=== PATIENT | female | born 1965 | race Caucasian/White ===

== ENCOUNTER 2016-10-01 08:18 | Emergency (ER) | payer MEDICAID, OTHER ==
[~2016-10-01] VITALS: Wt 78.0 kg
[2016-10-01 09:18] LABS: URINE BLOOD (Dip) POC 1+ (NEGATIVE)
[2016-10-01 09:29] LABS: EOSINOPHILS # 0.2 10^3/ul (0.0-0.5); EOSINOPHILS % 1.7 % (0.0-7.0); HEMATOCRIT 44.6 % (37.0-47.0); HEMOGLOBIN 15.4 g/dl (12.0-16.0); LYMPHOCYTES # 1.1 10^3/ul (0.8-2.9); LYMPHOCYTES % 9.3 % (15.0-51.0); MEAN CORPUSCULAR HEMOGLOBIN 28.8 pg (29.0-33.0); MEAN CORPUSCULAR HGB CONC 34.5 g/dl (32.0-37.0); MEAN CORPUSCULAR VOLUME 83.6 fl (82.0-101.0); MEAN PLATELET VOLUME 8.9 fl (7.4-10.4); MONOCYTE # 0.4 10^3/ul (0.3-0.9); MONOCYTES % 3.2 % (0.0-11.0); NEUTROPHIL # 10.3 10^3/ul (1.6-7.5); NEUTROPHILS % 85.8 % (39.0-77.0); PLATELET COUNT 246 10^3/UL (140-440); RED BLOOD COUNT 5.33 10^6/ul (4.20-5.40); RED CELL DISTRIBUTION WIDTH 13.9 % (11.5-14.5)
[2016-10-01 09:34] LABS: CONDITION 1
--- NOTE | 2016-10-01 09:38 | RADRPT ---
PROCEDURE: Chest x-ray CLINICAL INDICATION: Cough. TECHNIQUE: One-view frontal. COMPARISON: None available FINDINGS: The cardiac silhouette is normal. No infiltrates are noted. No hilar abnormalities are identified. No pneumothorax or pleural effusions are visualized. IMPRESSION: 1. No active cardiopulmonary changes. RPTAT: HH .Elias Stark MD, MD Date Time Electronically viewed and signed by .Elias Stark MD, on 10/01/2016 09:38 .G/
[2016-10-01 09:39] LABS: CHLORIDE 103 mmol/L (97-110); POTASSIUM 4.9 mmol/L (3.5-5.1); SODIUM 143 mmol/L (135-144)
[2016-10-01 09:41] LABS: CREATININE 0.46 mg/dl (0.44-1.00)
[2016-10-01 09:42] LABS: ANION GAP 17 (8-16); BLOOD UREA NITROGEN 9 mg/dl (7-20); CALCIUM 9.8 mg/dl (8.4-10.2); CARBON DIOXIDE 28 mmol/L (21-31); GLUCOSE 139 mg/dl (70-220); INR 0.93; PROTIME 12.5 Sec (12.2-14.2)
[2016-10-01 09:43] LABS: PARTIAL THROMBOPLASTIN TIME 30.8 Sec (25.0-35.0)
[2016-10-01 09:45] LABS: D-DIMER 601.34 ng/ml (<460)
[2016-10-01 09:54] LABS: B-TYPE NATRIURETIC PEPTIDE 64 PG/ML (0-125); TROPONIN-I < 0.012 ng/ml (0.00-0.12)
[2016-10-01 10:04] VITALS: PULSE 78; RESP 20; TEMP 98.8
--- NOTE | 2016-10-01 11:01 | ERD ---
ER Documentation Chief Complaint Date/Time DATE: 10/01/16 TIME: 10:53 Chief Complaint COUGH AND MILD SOB SINCE YESTERDAY. NO DISTRESS. NO CHEST PAIN HPI This is a 50-year-old female presenting to the emergency department for cough 1 week and shortness of breath 2 days. Patient describes a dry, nonproductive cough. Shortness of breath started yesterday and has been getting worse. Shortness of breath occurs with activity and at rest. No wheezing per patient. Denies chest pressure or pain. No weakness. No fevers or chills. No recent travel. Patient denies being on control pills. Denies any swelling in extremities. ROS All systems reviewed and are negative except as per history of present illness. Allergies Allergies: Coded Allergies: aspirin (Verified Allergy, Mild, RASHES, 10/01/16) cephalexin (Verified Allergy, Mild, RASHES, 10/01/16) ibuprofen (Verified Allergy, Mild, RASHES, 10/01/16) PMhx/Soc Medical and Surgical Hx: pt denies Surgical Hx History of Surgery: No Anesthesia Reaction: No Hx Neurological Disorder: No Hx Respiratory Disorders: No Hx Cardiac Disorders: No Hx Psychiatric Problems: No Hx Miscellaneous Medical Probl: Yes (DM) Hx Alcohol Use: No Hx Substance Use: No Hx Tobacco Use: Yes Smoking Status: Current every day smoker Physical Exam Vitals Vital Signs Date Time Temp Pulse Resp B/P Pulse Ox O2 Delivery O2 Flow Rate FiO2 10/01/16 10:04 98.8 78 20 96 Nasal Cannula 2.0 10/01/16 08:36 Nasal Cannula 2 10/01/16 08:22 98.8 95 20 154/71 92 Physical Exam Const: No acute distress, alert Head: Atraumatic Eyes: Normal Conjunctiva ENT: Normal External Ears, Nose and Mouth. TMs normal bilaterally. No erythema or exudate to posterior pharynx. Neck: Full range of motion..~ No meningismus. No lymphadenopathy Resp: mild wheezing to auscultation bilaterally. No coarse lung sounds or crackles. No intercostal retractions. No increased work of breathing. Cardio: Regular rate and rhythm, no murmurs Abd: Soft, non tender, non distended. Normal bowel sounds Skin: No petechiae or rashes Back: No midline or flank tenderness Ext: No cyanosis, or edema Neur: Awake and alert Psych: Normal Mood and Affect Result Diagram: 10/01/16 0905 10/01/16 0905 Results 24 hrs Laboratory Tests Test 10/01/16 09:05 10/01/16 09:19 Activated Partial Thromboplast Time 30.8Sec Anion Gap 17 B-Type Natriuretic Peptide 64PG/ML Basophils # 0.010^3/ul Basophils % 0.0% Blood Morphology Comment Blood Urea Nitrogen 9mg/dl Calcium Level 9.8mg/dl Carbon Dioxide Level 28mmol/L Chloride Level 103mmol/L Creatinine 0.46mg/dl D-Dimer 601.34ng/ml D-Dimer Comment Eosinophils # 0.210^3/ul Eosinophils % 1.7% Glucose Level 139mg/dl Hematocrit 44.6% Hemoglobin 15.4g/dl INR International Normalized Ratio 0.93 Lymphocytes # 1.110^3/ul Lymphocytes % 9.3% Mean Corpuscular Hemoglobin 28.8pg Mean Corpuscular Hemoglobin Concent 34.5g/dl Mean Corpuscular Volume 83.6fl Mean Platelet Volume 8.9fl Monocytes # 0.410^3/ul Monocytes % 3.2% Neutrophils # 10.310^3/ul Neutrophils % 85.8% Nucleated Red Blood Cells # 0.010^3/ul Nucleated Red Blood Cells % 0.0/100WBC Platelet Count 75428^3/UL Potassium Level 4.9mmol/L Prothrombin Time 12.5Sec Prothrombin Time Ratio 1.0 Red Blood Count 5.3310^6/ul Red Cell Distribution Width 13.9% Sodium Level 143mmol/L Troponin I < 0.012ng/ml White Blood Count 12.010^3/ul Bedside Urine Blood 1+ Bedside Urine Glucose (UA) Negative Bedside Urine Ketones (LAB) Negative Bedside Urine Leukocyte Esterase (L Negative Bedside Urine Nitrite (LAB) Negative Bedside Urine Protein (LAB) Negative Bedside Urine pH (LAB) 7.0 Current Medications Medications (Trade) Dose Ordered Sig/Davian Route PRN Reason Start Time Stop Time Status Last Admin Dose Admin IV Flush 10 ml 10 ml STK-MED ONCE .ROUTE 10/01/16 11:40 10/01/16 11:41 DC 10/01/16 12:33 Sodium Chloride (NS) 100 ml @ ud STK-MED ONCE .ROUTE 10/01/16 11:40 10/01/16 11:41 DC 10/01/16 12:33 Iohexol 150 ml 150 ml STK-MED ONCE .ROUTE 10/01/16 11:40 10/01/16 11:41 DC 10/01/16 12:39 Iohexol (Omnipaque) 100 ml @ ud STK-MED ONCE .ROUTE 10/01/16 11:46 10/01/16 11:47 DC Procedures/MDM ED COURSE: The patient was stable throughout ED course. I kept the patient and/or family informed of laboratory and diagnostic imaging results throughout the ED course. Laboratory CBC no significant infection or anemia BMP no significant electrolyte imbalance Troponin less than 0.012 D-dimer 601.34 BNP 64 PT 12.5 INR 0.93 PTT 30.8 Imaging Chest x-ray Patient: GORDO GASTON : 1965 Age: 50 Sex: F MR #: [id number] DOS: 10/01/16 0845 Ordering MD: DELMY CARROLL NP Location: [facility] Room/Bed: PROCEDURE: Chest x-ray CLINICAL INDICATION: Cough. TECHNIQUE: One-view frontal. COMPARISON: None available FINDINGS: The cardiac silhouette is normal. No infiltrates are noted. No hilar abnormalities are identified. No pneumothorax or pleural effusions are visualized. IMPRESSION: 1. No active cardiopulmonary changes. CTA angiogram Patient: GORDO GASTON : 1965 Age: 50 Sex: F MR #: [id number] DOS: 10/01/16 1051 Ordering MD: DELMY CARROLL NP Location: [facility] Room/Bed: PROCEDURE: CTA Chest. CLINICAL INDICATION: Chest pain and shortness of breath TECHNIQUE: Continues 1.25 mm axial images were obtained from lung apices to the domes of diaphragms following intravenous injection of 100 cc of Isovue 370. Images reconstructed in coronal, sagittal, and 3-D format using maximum intensity projection technique.. The calculated dose length product (DLP) = 644.44 mGy-cm. The CTDlvol = 15.42 mGy. One or more of the following dose reduction techniques were used: Automated exposure control, adjustment of the mA and or KV according to patient size, or use of iterative reconstruction technique. COMPARISON: No prior studies are available for comparison. FINDINGS: Images through the pulmonary arteries demonstrates no evidence of large or central pulmonary emboli. The ascending and descending thoracic aorta are normal in caliber without aneurysmal dilatation or dissection. Heart chambers are normal in size. No pericardial effusion is seen. There are no pathologically enlarged mediastinal or axillary lymph nodes. Reactive aortopulmonic window lymph nodes are seen. Evaluation of the lung pisano demonstrates no confluent pneumonia, pleural fluid , pneumothorax. There is a calcified granuloma in the right lower lobe. A 3 mm subpleural ground-glass nodules noted in the left lower lobe (image #80) which is likely inflammatory in nature. No suspicious lung nodules or masses are seen. No destructive bony lesions are identified. There is tiny subcutaneous stranding in the right upper anterior chest at the level of the clavicular head (image #3 - 40). This may represent old scar. IMPRESSION: 1. No evidence of large or central pulmonary emboli. 2. No aortic aneurysm or dissection. 3. 3 mm ground-glass left lower lung nodule. This is likely inflammatory. 4. Old granulomatous disease. 5. Subcutaneous scar in the right anterior chest at the level of the clavicular head EKG: As interpreted by Dr. Horner Rate/Rhythm: Normal sinus rhythm with heart rate 93 bpm QRS, ST, T-waves: No changes consistent w/ acute ischemia Impression: No evidence of ischemia or arrhythmia MDM: This is a 50-year-old female presenting to the emergency department for cough 1 week and shortness of breath starting yesterday. Denies chest pain or chest pressure. Cough is dry nonproductive. No fevers or chills. Remains hemodynamically stable. Labs were drawn and IV access obtained. CBC, BMP and troponin are all within normal limits. D-dimer elevated at 601.34. Patient remains hypoxic at oxygen saturation 92-93% on room air. Discussed findings with Dr. Geller and we agree that patient needs further workup with CTA angiogram. Patient placed on 2 L oxygen via nasal cannula. Continuous pulse ox shows oxygen saturation 95-96% on room air. CTA reviewed by radiologist as no evidence of large or central pulmonary emboli. No aortic aneurysm or dissection. 3 mm ground-glass left lower lung nodule. This is likely inflammatory. Old granulomatous disease. Subcutaneous scar in the right anterior chest at the level of the clavicular head. Patient's vital signs remained stable. Differential diagnosis includes but not limited to bronchitis, pneumonia, pleural effusion, COPD pulmonary embolism, viral URI, strep pharyngitis ans asthma exacerbation. Low suspicion for pulmonary embolism, acute CT or bronchitis. Patient is appropriate for outpatient management and encouraged to follow-up with primary care provider in the next 2-3 days for reassessment with urgent referral to pulmonology. Return to ED for any high fever, chest pain, difficulty breathing, shortness breath, wheezing, vomiting, diarrhea, abdominal pain or any new or worsening symptoms. Patient verbalizes understanding. All questions answered at discharge. O[place]i translation use during this encounter. Departure Diagnosis: Primary Impression: Shortness of breath Condition: Stable DELMY CARROLL NP Oct 01, 2016 11:01
[2016-10-01] MEDS ORDERED: IOHEXOL 300MG/ML 150 ML BTL ONE (11:40)
[2016-10-01] MEDS ORDERED: SOD CHLORIDE 0.9% 100 ML ONE (11:40)
[2016-10-01] MEDS ORDERED: IOHEXOL 100 ML ONE (11:46)
--- NOTE | 2016-10-01 12:12 | RADRPT ---
PROCEDURE: CTA Chest. CLINICAL INDICATION: Chest pain and shortness of breath TECHNIQUE: Continues 1.25 mm axial images were obtained from lung apices to the domes of diaphragm s following intravenous injection of 100 cc of Isovue 370. Images reconstructed in coronal, sagitta l, and 3-D format using maximum intensity projection technique.. The calculated dose length product (DLP) = 644.44 mGy-cm. The CTDlvol = 15.42 mGy. One or more of the following dose reduction techniq ues were used: Automated exposure control, adjustment of the mA and or KV according to patient size, or use of iterative reconstruction technique. COMPARISON: No prior studies are available for comparison. FINDINGS: Images through the pulmonary arteries demonstrates no evidence of large or central pulmonary emboli. The ascending and descending thoracic aorta are normal in caliber without aneurysmal dilatation or dissection. Heart chambers are normal in size. No pericardial effusion is seen. There are no pat hologically enlarged mediastinal or axillary lymph nodes. Reactive aortopulmonic window lymph nodes are seen. Evaluation of the lung pisano demonstrates no confluent pneumonia, pleural fluid, pneumothorax. The re is a calcified granuloma in the right lower lobe. A 3 mm subpleural ground-glass nodules noted i n the left lower lobe (image #80) which is likely inflammatory in nature. No suspicious lung nodule s or masses are seen. No destructive bony lesions are identified. There is tiny subcutaneous stranding in the right upper anterior chest at the level of the clavicula r head (image #3 - 40). This may represent old scar. IMPRESSION: 1. No evidence of large or central pulmonary emboli. 2. No aortic aneurysm or dissection. 3. 3 mm ground-glass left lower lung nodule. This is likely inflammatory. 4. Old granulomatous disease. 5. Subcutaneous scar in the right anterior chest at the level of the clavicular head RPTAT: HH .Mason Franco MD, Date Time Electronically viewed and signed by .Mason Franco MD, MD on 10/01/2016 12:12 .W/
== END 2016-10-01 12:36 | disposition home or self-care (01) ==
LOC: FTE 08:18
DX: R06.02 Shortness of breath (principal); F17.210 Nicotine dependence, cigarettes, uncomplicated; E11.9 Type 2 diabetes mellitus without complications
CPT/HCPCS: 36415; 71010; 71275; 80048; 81003; 83880; 84484; 85025; 85378; 85610; 85730; Q9967; Z7502; Z7610; 93005